=== PATIENT | male | born 1985 | race Caucasian/White ===

== ENCOUNTER 2018-01-31 14:10 | Outpatient (CLI) | payer OTHER ==
--- NOTE | 2018-01-31 15:28 | XRAY Report ---
FOUR VIEW RIGHT WRIST: 01/31/2018 CLINICAL INDICATION: Trauma, pain. FINDINGS: AP, lateral, oblique, and scaphoid views of the right wrist demonstrate no evidence of acute fracture or dislocation. The joint spaces are preserved. No radiopaque foreign body is seen in the soft tissues. IMPRESSION: NORMAL RIGHT WRIST. TD: 01/31/2018 15:27
--- NOTE | 2018-01-31 15:30 | XRAY Report ---
THREE VIEW RIGHT HAND: 01/31/2018 CLINICAL INDICATION: Pain, injury. FINDINGS: AP, lateral, oblique views of the right hand demonstrate no evidence of acute fracture. The joint spaces are preserved. No radiopaque foreign body is seen in the soft tissues. IMPRESSION: NORMAL RIGHT HAND. TD: 01/31/2018 15:28
== END 2018-01-31 14:11 | disposition home or self-care (01) ==
LOC: DI 14:10
PROVIDERS: ATTEND Family Medicine
DX: M25.531 Pain in right wrist (principal); M79.641 Pain in right hand